=== PATIENT | male | born 1960 | race Two or more races ===

== ENCOUNTER → 2018-05-18 | Outpatient (CLI) | payer MEDICARE ==
--- NOTE | 2018-05-18 15:56 | CT ---
EXAMINATION TYPE: CT brain wo con DATE OF EXAM: 05/18/2018 HISTORY: memory loss/syncope. hx cva's CT DLP: 1171 mGycm. Automated Exposure Control for Dose Reduction was Utilized. TECHNIQUE: CT scan of the head is performed without contrast. COMPARISON: None. FINDINGS: There is no acute intracranial hemorrhage or midline shift identified. There is diffuse v entricular and sulcal prominence consistent with diffuse age-related cerebral atrophy. There is low- attenuation in the periventricular white matter consistent with chronic small vessel ischemic change. Age indeterminate but suspected old infarct high left parietal occipital region there are axial imag e 18 The globes are intact and the visualized sinuses are clear. Soft tissue density bilateral exte rnal auditory canals is felt to reflect cerumen. Vascular calcification of distal vertebral and inter nal carotid arteries is noted bilaterally. IMPRESSION: No acute intracranial hemorrhage or midline shift. There is mild diffuse age-related ce rebral atrophy and chronic small vessel ischemic change identified. Age-indeterminate but suspected old infarct high left parietal occipital region. Correlate clinically and possibly with old outside C T or MRI to confirm.
== END | disposition home or self-care (01) ==
LOC: RADCTMAIN 14:57
PROVIDERS: ATTEND Internal Medicine
DX: G31.1 Senile degeneration of brain, not elsewhere classified (principal); I67.82 Cerebral ischemia
CPT/HCPCS: 70450

== ENCOUNTER → 2018-08-24 | Outpatient (CLI) | payer MEDICARE ==
--- NOTE | 2018-08-24 12:11 | FL ---
EXAMINATION TYPE: FL barium swallow w video DATE OF EXAM: 08/24/2018 MODIFIED SWALLOW / DEGLUTITION STUDY CLINICAL HISTORY: Dysphagia. TECHNIQUE: Deglutition study is performed utilizing thin liquid barium, honey and nectar thick liqui d barium, barium thick applesauce, and barium coated cracker. 56 seconds of fluoroscopy time was util ized with 0 images saved as the examination was video recorded. COMPARISON: None. FINDINGS: The oral and pharyngeal phases show satisfactory initiation and propagation with all modali ties tested. Normal mastication is seen with solid modalities tested. Repeated laryngeal penetration was seen with the thin barium consistency above the lobe focal cords. There is no evidence of penetr ation or aspiration with the remaining modalities tested. Premature spill was noted with the thin and honey thick consistencies as well as premature bolus formation with the barium coated cracker. No si gnificant pharyngeal residue was appreciated. IMPRESSION: Repeated laryngeal penetration with thin barium consistency improved with the chin tuck m aneuver. Please refer to speech therapist notes for further details if necessary.
== END | disposition home or self-care (01) ==
LOC: RADFLMAIN 10:46
PROVIDERS: ATTEND Psychiatry & Neurology Neurology
DX: I63.9 Cerebral infarction, unspecified (principal)
CPT/HCPCS: 74230

== ENCOUNTER 2020-09-19 13:18 | Emergency (ER) | payer MEDICARE ==
[2020-09-19 13:52] LABS: Glucose,Whole Blood 37 mg/dL (75-99)
[2020-09-19] MEDS ORDERED: DEXTROSE 50% SYRINGE 50 ML IVP STA (13:53)
--- NOTE | 2020-09-19 13:57 | ED ---
General Adult HPI - General Chief complaint: Neuro Symptoms/Deficit Stated complaint: Weakness Time Seen by Provider: 09/19/20 13:30 Source: patient, RN notes reviewed, old records reviewed Mode of arrival: wheelchair Limitations: altered mental status - History of Present Illness Initial comments: This is a 60-year-old male with a past medical history significant for diabetes and stroke. Patient states he had a TIA back 10 years ago. Patient states today he started having difficulty finishing his words completing tasks on the Internet. His family was concerned so brought to the emergency department. The brother states initially his speech was slurred and he was having difficulty completing sentences he was very weak when he was walking. Patient denies any focal deficit of any extremity and had no facial droop. Patient states getting better according to brother currently. Patient is very diaphoretic he denies any chest pain or abdominal pain patient denies any pain whatsoever he denies being short of breath. - Related Data Home Medications Medication Instructions Recorded Confirmed [id number] 2 tab PO Q4HR PRN 09/19/20 09/19/20 [Excedrin] Atorvastatin Calcium [Lipitor] 10 mg PO HS 09/19/20 09/19/20 Cyclobenzaprine [Flexeril] 10 mg PO QAM 09/19/20 09/19/20 Cyclobenzaprine [Flexeril] 20 mg PO HS 09/19/20 09/19/20 Docusate Sodium [Dok] 200 mg PO HS 09/19/20 09/19/20 Folic Acid/Vit B Complex and C 400 mcg PO DAILY 09/19/20 09/19/20 [Super B Complex-Vit C Caplet] Ginkgo Biloba 1,000 mg PO DAILY 09/19/20 09/19/20 Multivitamins, Thera [Multivitamin 1 tab PO DAILY@1200 09/19/20 09/19/20 (formulary)] Omeprazole Magnesium [PriLOSEC OTC] 20 mg PO DAILY 09/19/20 09/19/20 Pioglitazone [Actos] 30 mg PO DAILY 09/19/20 09/19/20 Sertraline HCl [Zoloft] 100 mg PO DAILY 09/19/20 09/19/20 Topiramate [Topamax] 100 mg PO DAILY 09/19/20 09/19/20 Warfarin Sodium 4 mg PO SUWE 09/19/20 09/19/20 Warfarin Sodium 8 mg PO MOTUTHFRSA 09/19/20 09/19/20 amLODIPine [Norvasc] 10 mg PO DAILY 09/19/20 09/19/20 cloNIDine HCL [Catapres] 0.1 mg PO TID 09/19/20 09/19/20 gemfibroziL [Lopid] 600 mg PO HS 09/19/20 09/19/20 glipiZIDE [Glucotrol] 20 mg PO BID 09/19/20 09/19/20 guaiFENesin [Mucinex] 600 mg PO Q12HR 09/19/20 09/19/20 hydroCHLOROthiazide [Hydrodiuril] 25 mg PO DAILY 09/19/20 09/19/20 lisinopriL 40 mg PO DAILY 09/19/20 09/19/20 metFORMIN HCL 1,000 mg PO BID 09/19/20 09/19/20 Allergies Allergy/AdvReac Type Severity Reaction Status Date / Time No Known Allergies Allergy Verified 09/19/20 15:02 Review of Systems ROS Statement: Those systems with pertinent positive or pertinent negative responses have been documented in the HPI. ROS Other: All systems not noted in ROS Statement are negative. Past Medical History Past Medical History: CVA/TIA, Hyperlipidemia, Hypertension Additional Past Medical History / Comment(s): cva x 2 -last cva 2007 History of Any Multi-Drug Resistant Organisms: None Reported Past Surgical History: No Surgical Hx Reported Past Psychological History: Depression Smoking Status: Former smoker Past Alcohol Use History: None Reported Past Drug Use History: None Reported General Exam - General Exam Comments Initial Comments: GENERAL: Patient is well-developed and well-nourished. Patient is nontoxic and well-h ydrated and is in mild distress. Patient is very diaphoretic ENT: Neck is soft and supple. No significant lymphadenopathy is noted. Oropharynx is clear. Moist mucous membranes. Neck has full range of motion without eliciting any pain. EYES: The sclera were anicteric and conjunctiva were pink and moist. Extraocular movements were intact and pupils were equal round and reactive to light. Eyelids were unremarkable. PULMONARY: Unlabored respirations. Good breath sounds bilaterally. No audible rales rhonchi or wheezing was noted. CARDIOVASCULAR: There is a regular rate and rhythm without any murmurs gallops or rubs. ABDOMEN: Soft and nontender with normal bowel sounds. SKIN: Skin is clear with no lesions or rashes and otherwise unremarkable. NEUROLOGIC: Patient is alert and oriented x3. Cranial nerves II through XII are grossly intact. Motor and sensory are also intact. Normal speech, volume and content. Symmetrical smile. MUSCULOSKELETAL: Normal extremities with adequate strength and full range of motion. LYMPHATICS: No significant lymphadenopathy is noted PSYCHIATRIC: Normal psychiatric evaluation. Limitations: altered mental status Course Vital Signs 09/19/20 13:32 Temperature 98.0 F Pulse Rate 101 H Respiratory 20 Rate Blood Pressure 156/62 O2 Sat by Pulse 100 Oximetry Medical Decision Making - Medical Decision Making EKG shows sinus tachycardia at 102 bpm AR interval is on a 48 QRSs 148 QT interval 366 QTC is 477. Patient's EKG shows a right bundle branch block. Patient has no chest pain and never had any chest pain today. Once the patient received D50 he was back to his baseline and there was no other complaints. Patient remained this way throughout his ED stay. Patient ate in the ED. Chest x-ray showed a possible left base however patient had no symptoms of cough no symptoms shortness breasts and no fever. - Lab Data Result diagrams: 09/19/20 14:17 09/19/20 14:17 Lab Results 09/19/20 09/19/20 09/19/20 Range/Units 13:51 14:17 14:17 WBC 11.4 H (3.8-10.6) k/uL RBC 4.70 (4.30-5.90) m/uL Hgb 14.2 (13.0-17.5) gm/dL Hct 43.0 (39.0-53.0) % MCV 91.5 (80.0-100.0) fL MCH 30.1 (25.0-35.0) pg MCHC 32.9 (31.0-37.0) g/dL RDW 13.5 (11.5-15.5) % Plt Count 422 (150-450) k/uL MPV 7.4 Neutrophils % 81 % Lymphocytes % 14 % Monocytes % 3 % Eosinophils % 0 % Basophils % 0 % Neutrophils # 9.2 H (1.3-7.7) k/uL Lymphocytes # 1.6 (1.0-4.8) k/uL Monocytes # 0.4 (0-1.0) k/uL Eosinophils # 0.0 (0-0.7) k/uL Basophils # 0.0 (0-0.2) k/uL Sodium 142 (137-145) mmol/L Potassium 4.0 (3.5-5.1) mmol/L Chloride 104 (98-107) mmol/L Carbon Dioxide 24 (22-30) mmol/L Anion Gap 14 mmol/L BUN 23 H (9-20) mg/dL Creatinine 2.62 H (0.66-1.25) mg/dL Est GFR (CKD-EPI)AfAm 30 (>60 ml/min/1.73 sqM) Est GFR (CKD-EPI)NonAf 26 (>60 ml/min/1.73 sqM) Glucose 41 L* (74-99) mg/dL POC Glucose (mg/dL) 37 L (75-99) mg/dL POC Glu Anesthesia Attending ID Jonathan Pineda Calcium 10.1 (8.4-10.2) mg/dL Total Bilirubin 0.3 (0.2-1.3) mg/dL AST 28 (17-59) U/L ALT 18 (4-49) U/L Alkaline Phosphatase 55 (38-126) U/L Troponin I (0.000-0.034) ng/mL Total Protein 8.3 H (6.3-8.2) g/dL Albumin 4.8 (3.5-5.0) g/dL Urine Color Urine Appearance (Clear) Urine pH (5.0-8.0) Ur Specific [place] (1.001-1.035) Urine Protein (Negative) Urine Glucose (UA) (Negative) Urine Ketones (Negative) Urine Blood (Negative) Urine Nitrite (Negative) Urine Bilirubin (Negative) Urine Urobilinogen (<2.0) mg/dL Ur Leukocyte Esterase (Negative) 09/19/20 09/19/20 09/19/20 Range/Units 14:17 14:17 15:21 WBC (3.8-10.6) k/uL RBC (4.30-5.90) m/uL Hgb (13.0-17.5) gm/dL Hct (39.0-53.0) % MCV (80.0-100.0) fL MCH (25.0-35.0) pg MCHC (31.0-37.0) g/dL RDW (11.5-15.5) % Plt Count (150-450) k/uL MPV Neutrophils % % Lymphocytes % % Monocytes % % Eosinophils % % Basophils % % Neutrophils # (1.3-7.7) k/uL Lymphocytes # (1.0-4.8) k/uL Monocytes # (0-1.0) k/uL Eosinophils # (0-0.7) k/uL Basophils # (0-0.2) k/uL Sodium (137-145) mmol/L Potassium (3.5-5.1) mmol/L Chloride (98-107) mmol/L Carbon Dioxide (22-30) mmol/L Anion Gap mmol/L BUN (9-20) mg/dL Creatinine (0.66-1.25) mg/dL Est GFR (CKD-EPI)AfAm (>60 ml/min/1.73 sqM) Est GFR (CKD-EPI)NonAf (>60 ml/min/1.73 sqM) Glucose (74-99) mg/dL POC Glucose (mg/dL) 104 H (75-99) mg/dL POC Glu Anesthesia Attending ID [place], II, Dc Calcium (8.4-10.2) mg/dL Total Bilirubin (0.2-1.3) mg/dL AST (17-59) U/L ALT (4-49) U/L Alkaline Phosphatase (38-126) U/L Troponin I <0.012 (0.000-0.034) ng/mL Total Protein (6.3-8.2) g/dL Albumin (3.5-5.0) g/dL Urine Color Light Yellow Urine Appearance Clear (Clear) Urine pH 6.0 (5.0-8.0) Ur Specific [place] 1.004 (1.001-1.035) Urine Protein Negative (Negative) Urine Glucose (UA) Negative (Negative) Urine Ketones Negative (Negative) Urine Blood Negative (Negative) Urine Nitrite Negative (Negative) Urine Bilirubin Negative (Negative) Urine Urobilinogen <2.0 (<2.0) mg/dL Ur Leukocyte Esterase Negative (Negative) Disposition Clinical Impression: Hypoglycemia, Renal insufficiency Disposition: HOME SELF-CARE Condition: Good Instructions (If sedation given, give patient instructions): Hypoglycemia in a Person with Diabetes (ED) Is patient prescribed a controlled substance at d/c from ED?: No Referrals: Breann Henley MD [Primary Care Provider] - 1-2 days Time of Disposition: 15:49
[2020-09-19 14:35] LABS: Basophils % (A) 0 %; Eosinophils % (A) 0 %; HGB 14.2 gm/dL (13.0-17.5); Lymphocytes # (A) 1.6 k/uL (1.0-4.8); Lymphocytes % (A) 14 %; MCH 30.1 pg (25.0-35.0); MCHC 32.9 g/dL (31.0-37.0); MCV 91.5 fL (80.0-100.0); Mean Platelet Volume 7.4; Monocytes # (A) 0.4 k/uL (0-1.0); Monocytes % (A) 3 %; Neutrophils # (A) 9.2 k/uL (1.3-7.7); Neutrophils % (A) 81 %; Platelet Count 422 k/uL (150-450); RDW 13.5 % (11.5-15.5); WBC 11.4 k/uL (3.8-10.6)
[2020-09-19 14:46] LABS: Albumin 4.8 g/dL (3.5-5.0); Calcium 10.1 mg/dL (8.4-10.2); Total Bilirubin 0.3 mg/dL (0.2-1.3); Total Protein 8.3 g/dL (6.3-8.2)
--- NOTE | 2020-09-19 14:54 | XR ---
EXAMINATION TYPE: XR chest 2V DATE OF EXAM: 09/19/2020 COMPARISON: NONE TECHNIQUE: PA and lateral views submitted. HISTORY: Difficulty breathing FINDINGS: There are subsegmental infiltrate at the left lung base. No overt failure or pleural effusion. No pne umothorax. Heart size normal. Arthropathy of the shoulders and hypertrophic and degenerative change o f the spine. Ration: 1. Left basilar infiltrate.
[2020-09-19 15:22] LABS: Glucose,Whole Blood 104 mg/dL (75-99)
[2020-09-19 15:38] LABS: Appearance,Urine Clear (Clear); Bilirubin,Urine Negative (Negative); Blood,Urine Negative (Negative); Color,Urine Light Yellow; Glucose,Urine (UA) Negative (Negative); Ketones,Urine Negative (Negative); Leukocyte Esterase,Urine Negative (Negative); Nitrite,Urine Negative (Negative); Protein,Urine Negative (Negative); Specific Gravity,Urine 1.004 (1.001-1.035); Urobilinogen,Urine <2.0 mg/dL (<2.0)
[2020-09-19 16:45] VITALS: BP 129/81; PULSE 105; RESP 18; TEMP 98.6
== END 2020-09-19 16:44 | disposition home or self-care (01) ==
LOC: EC 13:18
DX: E11.649 Type 2 diabetes mellitus with hypoglycemia without coma (principal); N28.9 Disorder of kidney and ureter, unspecified; E78.5 Hyperlipidemia, unspecified; I10 Essential (primary) hypertension; F32.9 Major depressive disorder, single episode, unspecified; Z79.84 Long term (current) use of oral hypoglycemic drugs; Z79.899 Other long term (current) drug therapy; Z86.73 Personal history of transient ischemic attack (TIA), and cerebral infarction without residual deficits; Z87.891 Personal history of nicotine dependence
CPT/HCPCS: 36415; 71046; 80053; 81003; 84484; 85025; 93005; 96374; 99285

== ENCOUNTER → 2020-10-17 | Outpatient (CLI) | payer MEDICARE ==
--- NOTE | 2020-10-17 15:50 | US ---
EXAMINATION TYPE: US kidneys/renal and bladder DATE OF EXAM: 10/17/2020 COMPARISON: NONE CLINICAL HISTORY: N28.9 RENAL INSUFFICIENCY. EXAM MEASUREMENTS: Right Kidney: 11.0 x 5.7 x 4.7 cm Left Kidney: 10.6 x 5.1 x 4.3 cm Right Kidney: no hydronephrosis or masses seen Left Kidney: no hydronephrosis or masses seen Bladder: wnl Bilateral Jets seen: yes There is no evidence for hydronephrosis at this point in time. No nephrolithiasis is seen. No tatiana s are identified on images saved. The urinary bladder is anechoic. Bilateral ureteral jets are seen . IMPRESSION: Suboptimal study due to body habitus. No hydronephrosis is noted bilaterally.
== END | disposition home or self-care (01) ==
LOC: RADUSWWP 14:46
PROVIDERS: ATTEND Internal Medicine
DX: N28.9 Disorder of kidney and ureter, unspecified (principal)
CPT/HCPCS: 76770

== ENCOUNTER → 2024-02-24 | Outpatient (CLI) | payer MEDICARE ==
--- NOTE | 2024-02-25 07:23 | CA ---
Transthoracic Echo Report Name: Nicola Pérez Age: 63 Gender: M : 1960 Exam Date: 02/24/2024 14:52 Exam Location: [facility] Ht (in): 65 Wt (lb): 235 Ordering Physician: Damien Fontaine DO Attending/Referring Phys: Skein Straightener Cris Craven RDCS Procedure CPT: Indications: I63.9 STROKE Cardiac Hx: Technical Quality: Technically difficult study Contrast 1: Definity Total Dose (mL): 2 Contrast 2: Total Dose (mL): MEASUREMENTS (Male / Female) Normal Values 2D ECHO LV Diastolic Diameter PLAX 3.7 cm 4.2 - 5.9 / 3.9 - 5.3 cm LV Systolic Diameter PLAX 2.2 cm IVS Diastolic Thickness 1.2 cm 0.6 - 1.0 / 0.6 - 0.9 cm LVPW Diastolic Thickness 1.3 cm 0.6 - 1.0 / 0.6 - 0.9 cm LV Relative Wall Thickness 0.7 RV Internal Dim ED PLAX 3.2 cm LVOT Diameter 2.2 cm LA Systolic Diameter LX 3.5 cm 3.0 - 4.0 / 2.7 - 3.8 cm LA Volume 55.3 cm??? 18 - 58 / 22 - 52 cm??? LA Volume Index 24.4 cm???/m??? 16 - 28 cm???/m??? M-MODE Aortic Root Diameter MM 3.3 cm AV Cusp Separation MM 2.1 cm DOPPLER AV Peak Velocity 162.7 cm/s AV Peak Gradient 10.6 mmHg MV Area PHT 2.9 cm??? Mitral E Point Velocity 78.0 cm/s Mitral A Point Velocity 115.1 cm/s Mitral E to A Ratio 0.7 MV Deceleration Time 264.6 ms TR Peak Velocity 261.3 cm/s TR Peak Gradient 27.3 mmHg Right Ventricular Systolic Press 32.3 mmHg FINDINGS Left Ventricle Left ventricular ejection fraction is estimated at 55-60 %. Small left ventricular cavity. Mildly increased septal wall thickness. No obvious regional wall motion abnormalities. Right Ventricle Normal right ventricular size. Right ventricular systolic pressure within normal limits. Right Atrium Normal right atrial size. Negative agitated saline bubble study for right to left shunt. Left Atrium Normal left atrial size. Mitral Valve Structurally normal mitral valve. No mitral stenosis, regurgitation or prolapse. Aortic Valve Trileaflet aortic valve. No aortic valve stenosis or regurgitation. Tricuspid Valve Structurally normal tricuspid valve. Mild tricuspid regurgitation. Pulmonic Valve Structurally normal pulmonic valve. No pulmonic regurgitation. Pericardium No pericardial effusion. Aorta Normal size aortic root and proximal ascending aorta. CONCLUSIONS LVH with preserved systolic function Previewed by: Dr. Familia Valdivia MD (Electronically Signed) Final Date: 25 February 2024 07:22
== END | disposition home or self-care (01) ==
LOC: RADECHMAIN 13:44
PROVIDERS: ATTEND Internal Medicine
DX: I51.7 Cardiomegaly (principal); I63.9 Cerebral infarction, unspecified
CPT/HCPCS: C8929; Q9957; 93306

== ENCOUNTER → 2024-02-24 | Outpatient (CLI) | payer MEDICARE ==
--- NOTE | 2024-02-25 06:56 | US ---
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 Significant peripheral arterial disease in the right lower extremity. 2. No significant arterial disease in the left lower extremity
--- NOTE | 2024-02-25 07:03 | US ---
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 Indirect Doppler criteria was utilized. FINDINGS: EXAM MEASUREMENTS: RIGHT: Peak Systolic Velocity (PSV) cm/sec ----- Right CCA: 55.1 ----- Right ICA: 183.7 ----- Right ECA: 362.8 ICA/CCA ratio: 3.3 RIGHT: End Diastole cm/sec ----- Right CCA: 15.8 ----- Right ICA: 52.7 ----- Right ECA: 85.8 LEFT: Peak Systolic Velocity (PSV) cm/sec ----- Left CCA: 80.6 ----- Left ICA: 235.7 ----- Left ECA: 151.6 ICA/CCA ratio: 2.9 LEFT: End Diastole cm/sec ----- Left CCA: 23.4 ----- Left ICA: 103.1 ----- Left ECA: 28.8 VERTEBRALS (direction of flow): Right Vertebral: Antegrade Left Vertebral: Unable to visualize. Rhythm: Normal INDUSTRIAL RELATIONS OFFICER NOTES: Elevated velocities and bilateral plaque noted. There is moderate to marked multifocal calcified plaque in the distal common carotid arteries and car otid bifurcations bilaterally. IMPRESSION: 1. Based on color and grayscale imaging as well as peak systolic velocities and ratios, there is a mo derate 50-69% stenosis in the right internal carotid artery. 2. Based on color and grayscale imaging as well as peak systolic velocities and ratios there is a sev ere, greater than 70% left internal carotid artery stenosis. 3. No flow detected in the left vertebral artery. Criteria for Assigning % of Stenosis / Diameter reduction (Estimation based on the indirect measurements of the internal carotid artery velocities (ICA PSV). 1. Normal (no stenosis)=ICA PSV < 125 cm/s: ratio < 2.0: ICA EDV<40 cm/s. 2. Less than 50% stenosis=ICA PSV < 125 cm/s: ratio < 2.0: ICA EDV<40 cm/s. 3. 50 to 69% stenosis=ICA PSV of 125 to 230 cm/s: ration 2.0 ? 4.0: ICA EDV 40-100 cm/s. 4. Greater than 70% stenosis to near occlusion= ICA PSV > 230 cm/s: ratio > 4.0: ICA EDV > 100 cm/s. 5. Near occlusion= ICA PSV velocities may be low or undetectable: variable ratio and ICA EDV. 6. Total occlusion=unable to detect flow.
== END | disposition home or self-care (01) ==
LOC: RADUSWWP 13:47
PROVIDERS: ATTEND Internal Medicine
DX: I65.23 Occlusion and stenosis of bilateral carotid arteries (principal); I73.9 Peripheral vascular disease, unspecified; I63.9 Cerebral infarction, unspecified; I87.2 Venous insufficiency (chronic) (peripheral); I10 Essential (primary) hypertension; E78.5 Hyperlipidemia, unspecified; I25.10 Atherosclerotic heart disease of native coronary artery without angina pectoris; E11.9 Type 2 diabetes mellitus without complications; Z87.891 Personal history of nicotine dependence
CPT/HCPCS: 93880; 93923

== ENCOUNTER → 2024-03-09 | Outpatient (CLI) | payer MEDICARE ==
[2024-03-09 11:54] LABS: INR 1.2 (<1.2); Prothrombin Time 12.5 sec (10.0-12.5)
== END | disposition home or self-care (01) ==
LOC: LABWHC1 11:15
PROVIDERS: ATTEND Internal Medicine
DX: Z51.81 Encounter for therapeutic drug level monitoring (principal); Z79.01 Long term (current) use of anticoagulants
CPT/HCPCS: 36415; 85610

== ENCOUNTER → 2024-07-13 | Outpatient (CLI) | payer MEDICARE ==
--- NOTE | 2024-07-13 12:38 | CT ---
EXAMINATION TYPE: CT brain wo con DATE OF EXAM: 07/13/2024 COMPARISON: 05/18/2018 HISTORY: fell hitting front of head CT DLP: 1340 mGycm Automated exposure control for dose reduction was used. Findings: The ventricles, basal cisterns and sulci over the convexities are within normal limits and there is n o mass effect or shift of midline structures. There is a single tiny stable remote lacunar infarct in the left caudate nucleus. There is a table fo brandt decreased density involving the left frontal cortex and subcortical white matter consistent with remote infarct The posterior fossa including the brainstem, fourth ventricle and cerebellar pontine angles appear no rmal. Intraorbital contents appear normal and symmetric. There are mucous tension cysts or polyps in the maxillary sinuses. The calvarium is intact. IMPRESSION: 1. No acute bleed or mass effect. 2. Stable remote lacunar infarct left caudate nucleus. 3. Stable remote right parietal/occipital region. 4 mucous retention cysts or polyps in the maxillary sinuses. 5. Calvarium is intact.
== END | disposition home or self-care (01) ==
LOC: RADCTMAIN 11:03
PROVIDERS: ATTEND Internal Medicine
DX: W19.XXXA Unspecified fall, initial encounter (principal); Y92.009 Unspecified place in unspecified non-institutional (private) residence as the place of occurrence of the external cause; Z86.73 Personal history of transient ischemic attack (TIA), and cerebral infarction without residual deficits
CPT/HCPCS: 70450

== ENCOUNTER → 2024-11-02 | Outpatient (CLI) | payer MEDICARE ==
--- NOTE | 2024-11-02 11:54 | US ---
EXAMINATION TYPE: US carotid duplex BILAT DATE OF EXAM: 11/02/2024 COMPARISON: US Carotid 02/24/24 CLINICAL INDICATION: Male, 64 years old with history of I65.23 STENOSIS; Hx [place] Additional History: .... TECHNIQUE: Grayscale, color Doppler and spectral Doppler evaluation of the bilateral carotid systems and vertebral arteries. Indirect Doppler criteria was utilized. FINDINGS: EXAM MEASUREMENTS: RIGHT: Peak Systolic Velocity (PSV) cm/sec ----- Right CCA: 64.8 ----- Right ICA: 198.9 ----- Right ECA: 146.3 ICA/CCA ratio: 3.1 RIGHT: End Diastole cm/sec ----- Right CCA: 27.0 ----- Right ICA: 68.8 ----- Right ECA: 31.7 LEFT: Peak Systolic Velocity (PSV) cm/sec ----- Left CCA: 82.0 ----- Left ICA: 241.4 ----- Left ECA: 113.5 ICA/CCA ratio: 2.9 LEFT: End Diastole cm/sec ----- Left CCA: 28.8 ----- Left ICA: 76.9 ----- Left ECA: 22.9 VERTEBRALS (direction of flow): Right Vertebral: Antegrade Left Vertebral: Antegrade Rhythm: Normal ASH WORKER NOTES: Elevated velocities and plaque formation noted within the bilateral internal carot id arteries. Limited evaluation due to artifact from excessive facial hair Color Doppler imaging shows patency with blood flow throughout the carotid artery. Spectral waveforms are within normal limits. IMPRESSION: Right: 50-69% stenosis at the origin of the right internal carotid artery. Left: Greater than 70% stenosis at the origin of the left internal carotid artery based on peak systo lic velocity. Criteria for Assigning % of Stenosis / Diameter reduction (Estimation based on the indirect measurements of the internal carotid artery velocities (ICA PSV). 1. Normal (no stenosis)=ICA PSV < 125 cm/s: ratio < 2.0: ICA EDV<40 cm/s. 2. Less than 50% stenosis=ICA PSV < 125 cm/s: ratio < 2.0: ICA EDV<40 cm/s. 3. 50 to 69% stenosis=ICA PSV of 125 to 230 cm/s: ration 2.0 ? 4.0: ICA EDV 40-100 cm/s. 4. Greater than 70% stenosis to near occlusion= ICA PSV > 230 cm/s: ratio > 4.0: ICA EDV > 100 cm/s. 5. Near occlusion= ICA PSV velocities may be low or undetectable: variable ratio and ICA EDV. 6. Total occlusion=unable to detect flow. [facility], , 11/02/2024 11:52 AM
== END | disposition home or self-care (01) ==
LOC: RADUSWWP 09:32
PROVIDERS: ATTEND Internal Medicine
DX: I65.23 Occlusion and stenosis of bilateral carotid arteries (principal)
CPT/HCPCS: 93880

== ENCOUNTER 2024-11-13 10:20 | Emergency (ER) | payer MEDICARE ==
[2024-11-13 10:54] VITALS: RESP 18
--- NOTE | 2024-11-13 10:56 | ED ---
Recheck HPI - General Source: patient, RN notes reviewed Mode of arrival: ambulatory Limitations: no limitations <Cinthia Baez - Last Filed: 11/13/24 10:56> <Humberto Merino - Last Filed: 11/13/24 13:15> - General Chief Complaint: Recheck/Abnormal Lab/Rx Stated Complaint: headache, loss of josé miguel Time Seen by Provider: 11/13/24 10:56 - History of Present Illness Initial Comments: Patient is a 64-year-old male presented the ER for evaluation of headache and decreased appetite. This been going on for the past day and a half. Patient had INR drawn today around 5:30 AM and it was found to be 6. Patient does take Coumadin. Patient reports a history of migraines due to "atmospheric pressure changes". He denies any dizziness, lightheadedness, chest pain, shortness of breath or abdominal pain. (Cinthia Baez) Dictation was produced using [employer] dictation software. please excuse any gr ammatical, word or spelling errors. Chief Complaint: 64-year-old male presents with headache History of Present Illness: Patient 64-year-old male multiple comorbidities including stroke dyslipidemia hypertension. He has history of migraines. States that he has had a headache which feels like his usual migraine for the last 1 to 2 days. Checked his INR today. Patient takes Coumadin states that his INR was 6.0. Patient not sure why his INR is high. States that he has been taking his medications as prescribed. The ROS documented in this emergency department record has been reviewed and confirmed by me. Those systems with pertinent positive or negative responses have been documented in the HPI. All other systems are other negative and/or noncontributory. (Humberto Merino) - Related Data Home Medications Medication Instructions Recorded Confirmed Lgdntdl-Hcwa-Noty [id number] 2 tab PO Q4HR PRN 09/19/20 09/19/20 [Excedrin] Atorvastatin Calcium [Lipitor] 10 mg PO HS 09/19/20 09/19/20 Cyclobenzaprine [Flexeril] 10 mg PO QAM 09/19/20 09/19/20 Cyclobenzaprine [Flexeril] 20 mg PO HS 09/19/20 09/19/20 Docusate Sodium [Dok] 200 mg PO HS 09/19/20 09/19/20 Fioricet (Unknown Strength) 1 dose PO DIRECTED PRN 09/19/20 09/19/20 Folic Acid/Vit B Complex and C 400 mcg PO DAILY 09/19/20 09/19/20 [Super B Complex-Vit C Caplet] Ginkgo Biloba 1,000 mg PO DAILY 09/19/20 09/19/20 Multivitamins, Thera [Multivitamin 1 tab PO DAILY@1200 09/19/20 09/19/20 (formulary)] Omeprazole Magnesium [PriLOSEC OTC] 20 mg PO DAILY 09/19/20 09/19/20 Pioglitazone [Actos] 30 mg PO DAILY 09/19/20 09/19/20 Sertraline HCl [Zoloft] 100 mg PO DAILY 09/19/20 09/19/20 Sumatriptan (Unknown Strength) 1 tab PO DAILY PRN 09/19/20 09/19/20 Topiramate [Topamax] 100 mg PO DAILY 09/19/20 09/19/20 Warfarin Sodium 4 mg PO SUWE 09/19/20 09/19/20 Warfarin Sodium 8 mg PO MOTUTHFRSA 09/19/20 09/19/20 amLODIPine [Norvasc] 10 mg PO DAILY 09/19/20 09/19/20 cloNIDine HCL [Catapres] 0.1 mg PO TID 09/19/20 09/19/20 gemfibroziL [Lopid] 600 mg PO HS 09/19/20 09/19/20 glipiZIDE [Glucotrol] 20 mg PO BID 09/19/20 09/19/20 guaiFENesin [Mucinex] 600 mg PO Q12HR 09/19/20 09/19/20 hydroCHLOROthiazide [Hydrodiuril] 25 mg PO DAILY 09/19/20 09/19/20 lisinopriL 40 mg PO DAILY 09/19/20 09/19/20 metFORMIN HCL 1,000 mg PO BID 09/19/20 09/19/20 Allergies Allergy/AdvReac Type Severity Reaction Status Date / Time No Known Allergies Allergy Verified 11/13/24 10:48 Review of Systems ROS Other: All systems not noted in ROS Statement are negative. <Cinthia Baez - Last Filed: 11/13/24 10:56> ROS Other: All systems not noted in ROS Statement are negative. <Humberto Merino - Last Filed: 11/13/24 13:15> ROS Statement: Those systems with pertinent positive or pertinent negative responses have been documented in the HPI. Past Medical History Past Medical History: CVA/TIA, Hyperlipidemia, Hypertension Additional Past Medical History / Comment(s): cva x 2 -last cva 2007. "Widowmaker stroke" History of Any Multi-Drug Resistant Organisms: None Reported Past Surgical History: No Surgical Hx Reported Past Psychological History: Depression Smoking Status: Former smoker Past Alcohol Use History: None Reported Past Drug Use History: None Reported <Cinthia Baez - Last Filed: 11/13/24 10:56> General Exam Limitations: no limitations <Cinthia Baez - Last Filed: 11/13/24 10:56> <Humberto Merino - Last Filed: 11/13/24 13:15> - General Exam Comments Initial Comments: Visual Physical Exam Vital signs reviewed General: Well-appearing, nontoxic, no acute distress. Head: Normocephalic, atraumatic Eyes: PERRLA, EOMI ENT: Airway patent Chest: Nonlabored breathing Skin: No visual rash, normal skin tone Neuro: Alert and oriented 3 Musculoskeletal: No gross abnormalities (Cinthia Baez) PHYSICAL EXAM: General Impression: Alert and oriented x3, not in acute distress HEENT: Normocephalic atraumatic, extra-ocular movements intact, pupils equal and reactive to light bilaterally, mucous membranes moist. Cardiovascular: Heart regular rate and rhythm Chest: Able to complete full sentences, no retractions, no tachypnea Abdomen: abdomen soft, non-tender, non-distended, no organomegaly Musculoskeletal: Pulses present and equal in all extremities, no peripheral edema Motor: no focal deficits noted Neurological: CN II-XII grossly intact, no focal motor or sensory deficits noted Skin: Intact with no visualized rashes Psych: Normal affect and mood (Humberto Merino) Course Vital Signs 11/13/24 10:48 Temperature 98.4 F Pulse Rate 105 H Respiratory 18 Rate Blood Pressure 137/86 O2 Sat by Pulse 97 Oximetry Medical Decision Making <Cinthia Baez - Last Filed: 11/13/24 10:56> - Lab Data Result diagrams: 11/13/24 11:05 11/13/24 11:05 <Humberto Merino - Last Filed: 11/13/24 13:15> - Medical Decision Making I performed the quick note portion of this chart. Electronically signed by Cinthia Baez PA-C (Cinthia Baez) Was pt. sent in by a medical professional or institution ([facility], [employer], urgent care, hospital, or [facility]...) When possible be specific @ -No Did you speak to anyone other than the patient for history (EMS, parent, family, police, friend...)? What history was obtained from this source @ -No Did you review nursing and triage notes (agree or disagree)? Why? @ -I reviewed and agree with nursing and triage notes Were old charts reviewed (outside hosp., previous admission, EMS record, old EKG, old radiological studies, urgent care reports/EKG's, [facility] records)? Report findings @ -No old charts were reviewed Differential Diagnosis (chest pain, altered mental status, abdominal pain women, abdominal pain men, vaginal bleeding, musculoskeletal, weakness, fever, dyspnea, syncope, headache, dizziness, GI bleed, back pain, seizure, CVA, palpatations, mental health)? @ -Differential Headache: Migraine, tension, cluster, carbon monoxide, central venous thrombosis, pension karma temporal arteritis, acute closure glaucoma, intercranial hemorrhage, mastoiditis, sinusitis, head injury, this is not meant to be an all-inclusive list. EKG interpreted by me (3pts min.). @ -None done X-rays interpreted by me (1pt min.). @ -None done CT interpreted by me (1pt min.). @ -CT brain shows no acute processes U/S interpreted by me (1pt. min.). @ -None done What testing was considered but not performed or refused? (CT, X-rays, U/S, labs)? Why? @ -None What meds were considered but not given or refused? Why? @ -None Was smoking cessation discussed for >3mins.? @ -No Were there social determinants of health that impacted care today? How? (Homelessness, low income, unemployed, alcoholism, drug addiction, transportation, low edu. Level, literacy, decrease access to med. care, fdc, rehab)? @ -No Was there de-escalation of care discussed even if they declined (Discuss DNR or withdrawal of care, Hospice)? DNR status @ -No What co-morbidities impacted this encounter? (DM, HTN, Smoking, COPD, CAD, Cancer, CVA, ARF, Chemo, Hep., AIDS, mental health diagnosis, sleep apnea, morb id obesity)? @ -Coumadin use Was patient admitted / discharged? Hospital course, mention meds given and route, prescriptions, significant lab abnormalities, going to OR and other pertinent info. @ -64-year-old male presents emergency department with acute headache. He has history of migraines states that his headache feels like his usual headaches. States that his INR was high today at a level of 6.0. Vital signs stable. Physical examination is benign. Laboratory evaluation obtained. INR of 6.9, rest of labs within acceptable limits. CT brain shows no acute processes. Patient given headache cocktail with improvement of his symptoms. States that most of his symptoms are resolved. Patient told to skip his next to Coumadin doses and having INR rechecked. Patient will be discharged advised follow-up with primary care doctor Did you discuss the management of the patient with other professionals (professionals i.e. , PA, [employer], lab, RT, psych nurse, director of social media marketing, wood filler, teacher, traffic police officer, case repairer)? Give summary @ -No Was critical care preformed (if so, how long)? @ -No Undiagnosed new problem with uncertain prognosis? @ -No Drug Therapy requiring intensive monitoring for toxicity (Heparin, Nitro, Insulin, Cardizem)? @ -No Were any procedures done? @ -No Diagnosis/symptom? Acute, or Chronic, or Acute on Chronic? Uncomplicated (without systemic symptoms) or Complicated (systemic symptoms)? @ -Headache Side effects of treatment? @ -No Exacerbation, Progression, or Severe Exacerbation? @ -No Poses a threat to life or bodily function? How? (Chest pain, [place], [place], pneumonia, PE, COPD, DKA, ARF, appy, cholecystitis, CVA, Diverticulitis, Homicidal, Magalie cidal, threat to staff... and all critical care pts) @ -yes (Humberto Merino) - Lab Data Lab Results 11/13/24 11/13/24 11/13/24 Range/Units 11:05 11:05 11:05 WBC 10.8 H (3.8-10.6) k/uL RBC 4.65 (4.30-5.90) m/uL Hgb 14.0 (13.0-17.5) gm/dL Hct 42.7 (39.0-53.0) % MCV 91.8 (80.0-100.0) fL MCH 30.2 (25.0-35.0) pg MCHC 32.9 (31.0-37.0) g/dL RDW 13.8 (11.5-15.5) % Plt Count 401 (150-450) k/uL MPV 7.8 Neutrophils % 66 % Lymphocytes % 22 % Monocytes % 5 % Eosinophils % 5 % Basophils % 0 % Neutrophils # 7.1 (1.3-7.7) k/uL Lymphocytes # 2.3 (1.0-4.8) k/uL Monocytes # 0.6 (0-1.0) k/uL Eosinophils # 0.5 (0-0.7) k/uL Basophils # 0.0 (0-0.2) k/uL PT 68.7 H (10.0-12.5) sec INR 6.9 H* (<1.2) APTT 40.3 H (22.0-30.0) sec Sodium 139 (137-145) mmol/L Potassium 3.8 (3.5-5.1) mmol/L Chloride 105 (98-107) mmol/L Carbon Dioxide 20 L (22-30) mmol/L Anion Gap 14 mmol/L BUN 34 H (9-20) mg/dL Creatinine 1.78 H (0.66-1.25) mg/dL Est GFR (CKD-EPI)AfAm 46 (>60 ml/min/1.73 sqM) Est GFR (CKD-EPI)NonAf 40 (>60 ml/min/1.73 sqM) Glucose 88 (74-99) mg/dL Calcium 10.7 H (8.4-10.2) mg/dL Total Bilirubin 0.4 (0.2-1.3) mg/dL AST 29 (17-59) U/L ALT 24 (4-49) U/L Alkaline Phosphatase 69 (38-126) U/L Total Protein 7.8 (6.3-8.2) g/dL Albumin 4.6 (3.5-5.0) g/dL Disposition <Cinthia Baez - Last Filed: 11/13/24 10:56> Is patient prescribed a controlled substance at d/c from ED?: No Time of Disposition: 13:15 <Humberto Merino - Last Filed: 11/13/24 13:15> Clinical Impression: Migraine Disposition: HOME SELF-CARE Condition: Good Instructions (If sedation given, give patient instructions): Acute Headache (ED) Additional Instructions: skip next 2 coumading doses before resuming prescribed coumadin dosing. f/u for recheck in 2 days Referrals: Damien Fontaine DO [Primary Care Provider] - 1-2 days
[2024-11-13 11:15] LABS: Basophils % (A) 0 %; Eosinophils # (A) 0.5 k/uL (0-0.7); Eosinophils % (A) 5 %; HCT 42.7 % (39.0-53.0); Lymphocytes # (A) 2.3 k/uL (1.0-4.8); Lymphocytes % (A) 22 %; MCH 30.2 pg (25.0-35.0); MCHC 32.9 g/dL (31.0-37.0); MCV 91.8 fL (80.0-100.0); Mean Platelet Volume 7.8; Monocytes # (A) 0.6 k/uL (0-1.0); Monocytes % (A) 5 %; Neutrophils # (A) 7.1 k/uL (1.3-7.7); Neutrophils % (A) 66 %; Platelet Count 401 k/uL (150-450); RBC 4.65 m/uL (4.30-5.90); RDW 13.8 % (11.5-15.5); WBC 10.8 k/uL (3.8-10.6)
[2024-11-13 11:32] LABS: Partial Thromboplastin Time 40.3 sec (22.0-30.0); Prothrombin Time 68.7 sec (10.0-12.5)
[2024-11-13 11:33] LABS: ALT 24 U/L (4-49); African American GFR (CKD) 46 (>60 ml/min/1.73 sqM); Albumin 4.6 g/dL (3.5-5.0); Anion Gap 14 mmol/L; Blood Urea Nitrogen 34 mg/dL (9-20); Calcium 10.7 mg/dL (8.4-10.2); Carbon Dioxide 20 mmol/L (22-30); Chloride 105 mmol/L (98-107); Glucose 88 mg/dL (74-99); Non-African American GFR(CKD) 40 (>60 ml/min/1.73 sqM); Sodium 139 mmol/L (137-145); Total Bilirubin 0.4 mg/dL (0.2-1.3); Total Protein 7.8 g/dL (6.3-8.2)
[2024-11-13] MEDS: diphenhydrAMINE 50 MG/ML 1 ML VIAL IVP STA (11:38)
[2024-11-13] MEDS: SODIUM CHLORIDE 0.9% 1,000 ML IV STA (11:38)
[2024-11-13 11:39] LABS: INR 6.9 (<1.2)
[2024-11-13 11:41] LABS: AST 29 U/L (17-59); Alkaline Phosphatase 69 U/L (38-126); Potassium 3.8 mmol/L (3.5-5.1)
[2024-11-13] MEDS: DEXAMETHASONE SOD PHOSPHATE 10 MG/ML 1 ML VIAL IV STA (11:41)
[2024-11-13] MEDS: ONDANSETRON 4 MG/2 ML VIAL IVP STA (11:43)
--- NOTE | 2024-11-13 12:28 | CT ---
EXAMINATION TYPE: CT brain wo con DATE OF EXAM: 11/13/2024 12:11 PM COMPARISON: 07/13/2014, 05/18/2018 CLINICAL INDICATION: Male, 64 years old with history of headache, high inr, Headache, elevated INR TECHNIQUE: CT of the brain is performed utilizing 3 mm thick sections through the posterior fossa and 3 mm thick sections through the remaining calvarium. Study is performed within 24 hours of arrival to the hospital. Contrast used: mL of , (none if empty) CT DLP: 1255.4 mGycm, Automated exposure control for dose reduction was used. FINDINGS: No abnormal hyperdensity is present to suggest an acute intracranial hemorrhage. No mass lesion is evident. There is old hypodensity through the left occipital region extending towards the watershed region. Th is area appears stable from comparison of 07/13/2024 and 05/18/2018. Tiny caudate head lacunar infarct may be present. Ventricles and sulci are appropriate for the patient age. There is a retention cyst within the left maxillary sinus. IMPRESSION: 1. No acute intracranial process. Follow up MRI can be performed as clinically indicated. 2. Old left occipital ischemic type changes [facility], , 11/13/2024 12:25 PM
[2024-11-13] MEDS: KETOROLAC 15 MG/ML 1 ML VIAL IVP STA (12:41)
[2024-11-13 13:55] VITALS: BP 130/77; PULSE 69; TEMP 97.9
== END 2024-11-13 13:55 | disposition home or self-care (01) ==
LOC: EC 10:20
DX: G43.909 Migraine, unspecified, not intractable, without status migrainosus (principal); Z86.73 Personal history of transient ischemic attack (TIA), and cerebral infarction without residual deficits; Z87.891 Personal history of nicotine dependence
CPT/HCPCS: 36415; 80053; 85025; 85610; 85730; 70450; 99284; 96374; 96375 ×3; 96361; J1200; J1100; J2405; J1885

== ENCOUNTER → 2025-02-15 | Outpatient (CLI) | payer MEDICARE ==
[2025-02-15 12:31] LABS: African American GFR (CKD) 48 (>60 ml/min/1.73 sqM); Blood Urea Nitrogen 29 mg/dL (9-20); Non-African American GFR(CKD) 42 (>60 ml/min/1.73 sqM)
--- NOTE | 2025-02-15 13:51 | CT ---
EXAMINATION TYPE: CT angio neck DATE OF EXAM: 02/15/2025 COMPARISON: None CLINICAL INDICATION: Male, 64 years old with history of I65.29 OCCLUSION AND STENOSIS OF UNSPECIFIED CAROT; PHH, occlusion and stenosis of unspecified carotid TECHNIQUE: CTA scan of the head and neck is performed with IV Contrast, patient injected with 65 ML mL of Isovue 370, axial images are obtained, coronal and sagittal reformatted images are reviewed. 3D reconstructed images are created on an independent workstation and reviewed. CT DLP: [address] CTDI: mGy Automated exposure control for dose reduction was used. NASCET criteria was used in interpretation of this exam? FINDINGS: The brachiocephalic origins are widely patent and no significant stenosis. There is moderate eccentric calcified plaque in the carotid bifurcations results in a moderate approx imate 50% stenosis of the right proximal internal carotid artery and severe 70-80% stenosis of the pr oximal left internal carotid artery. IMPRESSION:. 1. Severe 70% proximal left internal carotid artery stenosis. 2 moderate approximately 50% stenosis proximal right internal carotid artery. NASCET criteria was used in interpretation of this exam? [facility], , 02/15/2025 1:48 PM
== END | disposition home or self-care (01) ==
LOC: RADCTMAIN 11:41
PROVIDERS: ATTEND Surgery
DX: I65.23 Occlusion and stenosis of bilateral carotid arteries (principal)
CPT/HCPCS: 82565; 84520; 70498; Q9967

== ENCOUNTER → 2025-02-22 | Outpatient (CLI) | payer MEDICARE ==
[2025-02-22 10:23] LABS: Basophils # (A) 0.09 X 10*3/uL (0.00-0.10); Basophils % (A) 0.8 %; Eosinophils # (A) 1.48 X 10*3/uL (0.04-0.35); Eosinophils % (A) 12.4 %; HCT 49.6 % (39.6-50.0); HGB 15.3 g/dL (13.0-17.0); Lymphocytes # (A) 2.56 X 10*3/uL (0.90-5.00); Lymphocytes % (A) 21.4 %; MCH 29.5 pg (27.0-32.0); MCHC 30.8 g/dL (32.0-37.0); MCV 95.6 FL (80.0-97.0); Mean Platelet Volume 10.5 FL (9.5-12.2); Monocytes # (A) 0.86 X 10*3/uL (0.20-1.00); Monocytes % (A) 7.2 %; NRBC Per 100 WBC 0 X 10*3/uL (0.00-0.01); Neutrophils # (A) 6.92 X 10*3/uL (1.80-7.70); Neutrophils % (A) 57.9 %; Platelet Count 329 X 10*3/uL (140-440); RBC 5.19 X 10*6/uL (4.40-5.60); RDW 15.2 % (11.5-14.5); WBC 11.94 X 10*3/uL (4.50-10.00)
[2025-02-22 10:47] LABS: Chol/HDL Ratio 4.08 Ratio; LDL Cholesterol,Calculated 105.7 mg/dL (0.0-131.0)
[2025-02-22 11:13] LABS: ALT 24 U/L (10-49); AST 32 U/L (14-35); Albumin 4.6 g/dL (3.8-4.9); Albumin/Globulin Ratio 1.48 Ratio (1.60-3.17); Alkaline Phosphatase 70 U/L (41-126); BUN/Creat Ratio 15.39 Ratio (12.00-20.00); Blood Urea Nitrogen 27.7 mg/dL (9.0-27.0); Calcium 10.8 mg/dL (8.7-10.3); Carbon Dioxide 23.2 mmol/L (21.6-31.8); Chloride 102 mmol/L (96-109); Globulin 3.1 g/dL (1.6-3.3); Glucose 109 mg/dL (70-110); Potassium 3.6 mmol/L (3.5-5.5); Sodium 138 mmol/L (135-145); Total Bilirubin 0.3 mg/dL (0.3-1.2); Total Protein 7.7 g/dL (6.2-8.2)
== END | disposition home or self-care (01) ==
LOC: LABWHC1 06:55
PROVIDERS: ATTEND Internal Medicine
DX: I10 Essential (primary) hypertension (principal); E78.5 Hyperlipidemia, unspecified; E11.9 Type 2 diabetes mellitus without complications
CPT/HCPCS: 36415; 80053; 80061; 83036; 85025